=== PATIENT | female | born 1945 | race Caucasian/White ===

== ENCOUNTER 2018-09-22 06:20 | Day surgery (SDC) | payer MEDICARE ==
[2018-09-22] MEDS ORDERED: SEVOFLURANE 15 MIN (07:00)
[2018-09-22] MEDS ORDERED: NEOSTIGMINE 3 MG/3 ML SYRINGE (07:00)
[2018-09-22] MEDS ORDERED: GLYCOPYRROLATE 0.4 MG INJ (07:00)
[2018-09-22 07:32] LABS: ADD MAN DIFF? NO
[2018-09-22 07:39] LABS: WHITE BLOOD COUNT 7.1 10^3/ul (4.8-10.8)
[2018-09-22 07:39] LABS: BASOPHILS % 0.1 % (0.0-2.0); EOSINOPHILS # 0.3 10^3/ul (0.0-0.5); EOSINOPHILS % 3.8 % (0.0-7.0); HEMATOCRIT 37.3 % (37.0-47.0); HEMOGLOBIN 12.4 g/dl (12.0-16.0); LYMPHOCYTES # 2.7 10^3/ul (0.8-2.9); LYMPHOCYTES % 37.7 % (15.0-51.0); MEAN CORPUSCULAR HGB CONC 33.2 g/dl (32.0-37.0); MEAN CORPUSCULAR VOLUME 90.1 fl (82.0-101.0); MEAN PLATELET VOLUME 10.2 fl (7.4-10.4); MONOCYTE # 0.6 10^3/ul (0.3-0.9); MONOCYTES % 8.6 % (0.0-11.0); NEUTROPHIL # 3.5 10^3/ul (1.6-7.5); NEUTROPHILS % 49.5 % (39.0-77.0); PLATELET COUNT 269 10^3/UL (140-415); RED BLOOD COUNT 4.14 10^6/ul (4.20-5.40); RED CELL DISTRIBUTION WIDTH 12.5 % (11.5-14.5)
[2018-09-22 08:05] LABS: ANION GAP 11 (5-13); BLOOD UREA NITROGEN 20 mg/dl (7-20); CALCIUM 9.6 mg/dl (8.4-10.2); CARBON DIOXIDE 29 mmol/L (21-31); CHLORIDE 100 mmol/L (97-110); CREATININE 0.92 mg/dl (0.44-1.00); GLUCOSE 119 mg/dl (70-220); POTASSIUM 4.1 mmol/L (3.5-5.1); SODIUM 140 mmol/L (135-144)
[2018-09-22 08:06] LABS: INR 1.03; PARTIAL THROMBOPLASTIN TIME 30.6 Sec (23.0-35.0); PROTIME 13.6 Sec (11.9-14.9); PT RATIO 1.1
[2018-09-22] MEDS ORDERED: INDOMETHACIN 50 MG SUPP PR (08:16)
[2018-09-22] MEDS ORDERED: IOHEXOL 300MG/ML 30 ML BTL (08:16)
[2018-09-22] MEDS ORDERED: CEFAZOLIN 1 GM INJ (08:21)
[2018-09-22] MEDS ORDERED: PROPOFOL 20 ML (08:21)
[2018-09-22] MEDS ORDERED: ROCURONIUM 50 MG INJ (08:21)
[2018-09-22] MEDS ORDERED: FENTAnyl 50 MCG/ML VIAL (08:21)
[2018-09-22] MEDS ORDERED: EPHEDrine SULFATE 50 MG/5 ML SYG IV (08:30)
[2018-09-22] MEDS ORDERED: MEPERIDINE 25 MG INJ IV (08:30)
[2018-09-22] MEDS ORDERED: hydrALAzine 20 MG INJ IV (08:30)
[2018-09-22] MEDS ORDERED: HYDROmorphONE 1 MG/5 ML IV SYRINGE IV ×2 (08:30)
[2018-09-22] MEDS ORDERED: LABETALOL HCL 20MG INJ IV (08:30)
[2018-09-22] MEDS ORDERED: DIPHENHYDRAMINE 50 MG INJ IV (08:30)
[2018-09-22] MEDS ORDERED: ONDANSETRON 4 MG INJ IV (08:30)
[2018-09-22] MEDS ORDERED: METOCLOPRAMIDE 10 MG INJ IV (08:30)
[2018-09-22] MEDS ORDERED: FENTAnyl 50 MCG/ML VIAL IV ×2 (08:30)
[2018-09-22] MEDS ORDERED: PHENYLephrine (100 MCG/ML) 5ML SYG (08:37)
[2018-09-22] MEDS ORDERED: METOCLOPRAMIDE 10 MG INJ (08:49)
[2018-09-22] MEDS ORDERED: DEXAMETHASONE 4 MG/ML 5 ML INJ (08:49)
[2018-09-22] MEDS ORDERED: ONDANSETRON 4 MG INJ (08:49)
== END 2018-09-22 10:58 | disposition home or self-care (01) ==
LOC: SDS 06:20
DX: K80.50 Calculus of bile duct without cholangitis or cholecystitis without obstruction (principal)
CPT/HCPCS: 43264; 71045; 74330; 80048; 85025; 85610; 85730